=== PATIENT | female | born 1995 | race Caucasian/White ===

== ENCOUNTER 2024-04-24 10:15 | Emergency (ER) | payer OTHER, SELFPAY ==
[2024-04-24] MEDS: DILAUDID 0.5 MG IV (10:45)
--- NOTE | 2024-04-24 10:50 | ED.GENMED ---
History of Present Illness
General
Chief Complaint: Anal/Rectal Problem
Source: patient
Time Seen by Provider: 04/24/24 10:23
History of Present Illness
History of Present Illness:
28-year-old female presents complaining of severe rectal pain onset yesterday getting worse today. She states she is sweaty and shaky secondary to the pain. She has a history of anal fissures however this feels different. Hurts to try to have a
bowel movement. She denies any nausea or abdominal pain. No blood in the bowel movement. No other complaints at this time
Past History
Past History
ED Past Medical History: Asthma, Hypercholesterolemia, Psychiatric (PTSD, borderline personality) and Other (Polycystic ovarian syndrome, IBS)
ED Past Surgical History: Tonsilectomy
Social History
Tobacco: Smoker
Alcohol: None
Personal: Other (Seperated)
Living: with family
Family History
Family History: Diabetes
Phy Exam
Physical Exam
Physical Exam:
General: Uncomfortable appearing female shaking and distress
HEENT: Normocephalic atraumatic
Heart: Regular rate and rhythm
Lungs: Clear no wheeze
Rectal exam. There is no external fissure noted. There is no external hemorrhoid noted. No obvious erythema or swelling patient describes discomfort inside.
Extremities: No cyanosis
Course
Orders/Labs/Results
Orders:
Orders
04/24/24 10:36
CT Pelvis With Iv Contrast Urgent
Comment:
Reason For Exam: rectal pain abscess vs proctitis
HYDROmorphone [Dilaudid] 0.5 mg IV NOW STA
Test Result ONCE
04/24/24 10:44
Complete Blood Count/With Diff Urgent
Comprehensive Metabolic Panel Urgent
HCG, Serum Qualitative Screen Urgent
04/24/24 11:08
diazePAM [Valium Injection] 5 mg IV NOW STA
Abnormal Lab Results
04/24/24
10:44
MCH 33.4 H pg
(27.0-31.0)
Abs Immat Gran (auto) 0.1 H 10^3/uL
(0-0.05)
AST 40 H U/L
(14-36)
ALT 50 H U/L
(0-35)
Total Protein 8.5 H g/dl
(6.3-8.2)
Albumin 5.2 H g/dl
(3.5-5.0)
04/24/24 10:44
04/24/24 10:44
Vital Signs
Initial and Last Documented VS:
Initial Vital Signs
Temp Pulse Resp Pulse Ox
98.0 F 93 22 98
04/24/24 10:17 04/24/24 10:17 04/24/24 10:17 04/24/24 10:17
Last Documented Vital Signs
Temp Pulse Resp Pulse Ox
98.0 F 93 22 98
04/24/24 10:17 04/24/24 10:17 04/24/24 10:17 04/24/24 10:17
MDM/Problems Addressed
Differential Diagnosis Includes:
Severe rectal pain. Consider hemorrhoids versus fissure versus proctitis versus abscess
Nothing externally on exam. Patient is in severe pain. Will treat discomfort. CT of pelvis with IV contrast pending.
*Critical Care Note
Total Time (30-74mins, 75-104mins- exclusive of procedures): Not Applicable
Update Note
Update Note:
CT negative for acute finding. Patient does feel better after supportive and symptomatic care here. Suspect mild proctitis. No fever. Labs reviewed without significant finding. Recommend steroid suppository stable for discharge
ED Attending Note
-
Portions of this chart may have been created with voice recognition software.� Occasional wrong word or��sound alike� substitutions may have occurred due to the inherent limitations of voice recognition software.
Discharge Plan
Departure
Patient Disposition: Home (Routine Discharge)
Date of Disposition: 04/24/24
Time of Disposition: 13:11
Patient with high blood pressure during this ER visit?: No
Discharge Problem:
Pain, rectal
Instructions: How to Do a Sitz Bath
Prescriptions:
New
hydrocortisone acetate 25 mg suppository
25 mg [place] BID 14 Days Qty: 12 0RF
No Action
albuterol sulfate 18 GM HFA aerosol inhaler
8.5 gm IH PRN PRN (Reason: asthma)
cannabidiol [Epidiolex] 1 UNIT solution
1 unit PO DAILY
Referrals:
NONE,* [Family Provider] -
Activity Restrictions/Additional Instructions:
Use steroid suppositories as directed. Keep stool soft with MiraLAX. Return if worse otherwise follow-up with your GI doctor
Interventions
Interventions:
*Risk Screen - Suicide Last Done: 04/24/24 12:17
*Neglect/Abuse Screening Last Done: 04/24/24 12:17
SU-Utaxqg-Bghwvrlhdy Assessment Last Done: 04/24/24 10:57
ED-Skin Assessment Last Done: 04/24/24 10:57
Discharge Date and Time
Print Language: SENEGALESE
[2024-04-24 11:00] LABS: % Basophils 0.5 % (0-2); % Eosinophils 2.9 % (0-6); % Immature Granulocytes 0.5 % (0-0.5); % Lymphocytes 28.7 % (20.5-51.1); % Monocytes 6.1 % (1.7-9.3); % Neutrophils 61.3 % (42.2-75.2); Absolute Basophils 0.1 10^3/uL (0-0.2); Absolute Eosinophils 0.3 10^3/uL (0-0.7); Absolute Immature Granulocytes 0.1 10^3/uL (0-0.05); Absolute Lymphocytes 2.7 10^3/uL (1.2-3.4); Absolute Monocytes 0.6 10^3/uL (0.1-0.6); Absolute Neutrophils 5.8 10^3/uL (1.4-6.5); Hematocrit 43.6 % (37.0-47.0); Hemoglobin 15.4 g/dL (12.0-16.0); Mean Corp Hgb Conc. 35.3 g/dL (33.0-37.0); Mean Corpuscular Hgb 33.4 pg (27.0-31.0); Mean Corpuscular Volume 94.6 fL (81.0-99.0); Mean Platelet Volume 9.9 fL (7.4-10.4); Nucleated Red Blood Cells % 0 %; Platelet Count 311 10^3/uL (130-400); Red Blood Cell Count 4.61 10^6/uL (4.20-5.40); Red Cell Dist. Width 12.1 % (11.5-14.5); White Blood Cell Count 9.4 10^3/uL (4.8-10.8)
[2024-04-24 11:12] LABS: ALT (SGPT) 50 U/L (0-35); AST (SGOT) 40 U/L (14-36); Albumin 5.2 g/dl (3.5-5.0); Alkaline Phosphatase 123 U/L (38-126); Blood Urea Nitrogen 10 mg/dl (7-17); Calcium 10.1 mg/dl (8.4-10.2); Carbon Dioxide 27 mmol/L (22-30); Chloride 106 mmol/L (98-107); Glucose 93 mg/dl (70-99); HCG, Serum Qualitative Screen Negative; Potassium 4.3 mmol/L (3.5-5.1); Sodium 142 mmol/L (135-145); Total Bilirubin 0.8 mg/dl (0.2-1.3); Total Protein 8.5 g/dl (6.3-8.2); eGFR > 60.00
[2024-04-24] MEDS: VALIUM INJECTION 5 MG IV (11:14)
[2024-04-24 13:17] VITALS: BP 126/74
[2024-04-24] MEDS: TORADOL 15 MG IM (13:39)
== END 2024-04-24 13:42 | disposition home or self-care (01) ==
LOC: EMR 10:15
PROVIDERS: Physician Assistant; EMERGENCY PHYSICIAN Student in an Organized Health Care Education/Training Program
DX: K62.89 Other specified diseases of anus and rectum (principal); J45.909 Unspecified asthma, uncomplicated; E78.00 Pure hypercholesterolemia, unspecified; F43.10 Post-traumatic stress disorder, unspecified; F60.3 Borderline personality disorder; E28.2 Polycystic ovarian syndrome; K58.9 Irritable bowel syndrome, unspecified; F17.200 Nicotine dependence, unspecified, uncomplicated; Z83.3 Family history of diabetes mellitus
CPT/HCPCS: 99284; 96374; 96375; 96372; 72193; 80053; 84703; 85025; Q9967

== ENCOUNTER 2024-04-25 12:46 | Emergency (ER) | payer OTHER, SELFPAY ==
[2024-04-25 12:51] VITALS: BP 169/110
[2024-04-25 14:35] VITALS: BP 139/88
--- NOTE | 2024-04-25 14:36 | ED.GENMED ---
History of Present Illness
General
Chief Complaint: Anal/Rectal Problem
Time Seen by Provider: 04/25/24 14:29
History of Present Illness
History of Present Illness:
Patient is a 28-year-old female with past medical history of pseudoseizures, asthma, hypertension, history of IBS/gastroparesis, bipolar disorder, depression, borderline personality disorder, PTSD, and asthma, here today for evaluation of rectal
pain. Patient states she has had intermittent episodes of rectal pain over the past 2 to 3 days. Pain is getting worse. Patient states pain is worse with defecation and she has been increasingly sweaty and shaky secondary to the pain. She did
attempt to use an enema which did not improve her symptoms and in fact made them worse. She has had a prior history of anal fissures but states symptoms today feel different. She reports no abdominal discomfort. No rectal bleeding. No vomiting
noted. No fevers. Patient states she has previously followed with GI but not for rectal pain. She does report having a colonoscopy several years ago which was reportedly normal. The patient denies recent anal intercourse. No concern for abuse,
trauma, or rape. The patient was seen in our emergency department yesterday for similar symptoms. She underwent a workup including screening labs which were noted to be within normal limits aside from a mild transaminitis. Patient also underwent a
CAT scan of the pelvis with IV contrast which revealed no apparent significant rectal wall thickening. No evidence of pneumatosis. No diverticulosis/diverticulitis. No acute findings identified. No abscess noted. Patient was ultimately
discharged. She presents today again given symptoms are persistent.
Past History
Past History
ED Past Medical History: Asthma, Hypercholesterolemia, Psychiatric (PTSD, borderline personality) and Other (Polycystic ovarian syndrome, IBS)
ED Past Surgical History: Tonsilectomy
Social History
Tobacco: Smoker
Alcohol: None
Personal: Other (Seperated)
Living: with family
Family History
Family History: Diabetes
Review of Systems
Review of Systems
All Other Systems: ROS reviewed and negative except as documented in HPI and ROS
Phy Exam
Physical Exam
Physical Exam:
GENERAL: Alert , in no apparent distress
EYE: pupils equal and reactive
NECK: Supple, no significant adenopathy.
ENT: o/p clr, mmm.
CARDIAC: Regular rate and rhythm .
LUNGS: Clear breath sounds bilaterally, no acute respiratory distress, no wheezes/rales/rhonchi
ABDOMEN: Soft, without focal tenderness, no r/g, no cvat
RECTAL: no masses, no bleeding, significant tenderness with CHELSY, very limited stool sample but heme negative, no hemorroids noted, no skin changes/erythema
NEUROLOGICAL: Alert and oriented, no focal neuro deficits
SKIN: Warm and dry, skin intact.
MUSCULOSKELETAL: No edema, well perfused.
PSYCH: Normal and appropriate interaction.
Course
Orders/Labs/Results
Orders:
Orders
04/25/24 14:53
Ibuprofen [Motrin] 600 mg PO NOW STA
04/25/24 15:05
Diazepam [Valium] 2 mg PO NOW STA
Abdomen Xray - 1 View [CR Abdomen - 1 View] Urgent
Comment:
Reason For Exam: rectal pain
Vital Signs
Initial and Last Documented VS:
Initial Vital Signs
Temp Pulse Resp BP Pulse Ox
98.1 F 128 18 169/110 98
04/25/24 12:51 04/25/24 12:51 04/25/24 12:51 04/25/24 12:51 04/25/24 12:51
Last Documented Vital Signs
Temp Pulse Resp BP Pulse Ox
98.1 F 82 20 125/96 98
04/25/24 12:51 04/25/24 15:04 04/25/24 15:04 04/25/24 15:04 04/25/24 12:51
MDM/Problems Addressed
Differential Diagnosis Includes:
Patient is a 28-year-old female with past medical history of pseudoseizures, asthma, hypertension, history of IBS/gastroparesis, bipolar disorder, depression, borderline personality disorder, PTSD, and asthma, here today for evaluation of rectal
pain. Patient states she has had intermittent episodes of rectal pain over the past 2 to 3 days. Overall, patient appears well. Physical examination including rectal examination described above. Findings may be secondary to anal fissures given
history. No emergent findings identified on examination. We will obtain a plain film abdominal XR and provide pain medication with ibuprofen and Valium. Will discuss with colorectal surgery. Case discussed with attending, Dr. Kong.
04/25/2024: 16:29: XR negative. Patient made aware of findings. Case discussed with colorectal surgery Dr. Jarod Centeno, who recommends no acute interventions and outpatient follow up. Will recommend ibuprofen for pain and calista-colace for stool
softening. Recommend supportive measures and close f/u. Patient given return precautions for worsening symptoms. All questions answered. Stable for discharge.
*Critical Care Note
Total Time (30-74mins, 75-104mins- exclusive of procedures): Not Applicable
ED Attending Note
-
Portions of this chart may have been created with voice recognition software.� Occasional wrong word or��sound alike� substitutions may have occurred due to the inherent limitations of voice recognition software.
Discharge Plan
Departure
Patient Disposition: Home (Routine Discharge)
Date of Disposition: 04/25/24
Time of Disposition: 16:33
Patient with high blood pressure during this ER visit?: Yes
Condition: Good
Covid-19: Not Applicable
Discharge Problem:
Rectal pain
Prescriptions:
New
sennosides-docusate sodium [Senna with Docusate Sodium] 8.6-50 mg tablet
2 tab-cap PO DAILY PRN (Reason: Constipation) 7 Days Qty: 14 0RF
No Action
albuterol sulfate 18 GM HFA aerosol inhaler
8.5 gm IH PRN PRN (Reason: asthma)
cannabidiol [Epidiolex] 1 UNIT solution
1 unit PO DAILY
hydrocortisone acetate 25 mg suppository
25 mg [place] BID 14 Days Qty: 12 0RF
Referrals:
Jarod Centeno MD [Active] - Follow up in 1 week
NONE,* [Family Provider] -
Activity Restrictions/Additional Instructions:
You were seen today for evaluation of rectal pain.
Your examination is without acute abnormalities noted.
We discussed your case with colorectal surgery who recommends outpatient follow-up.
Begin taking the stool softening medication as directed. You may take [id number] ibuprofen and Tylenol as directed as needed.
Return for any new, worsening, or concerning symptoms.
Interventions
Interventions:
*Risk Screen - Suicide Last Done: 04/25/24 13:10
*General Assessment Last Done: 04/25/24 13:10
*Neglect/Abuse Screening Last Done: 04/25/24 13:10
*ED COVID-19 Vaccine History Last Done: 04/25/24 12:51
*Nursing Disposition Last Done: 04/25/24 16:46
ED-Skin Assessment Last Done: 04/25/24 13:10
Discharge Date and Time
Discharge Date/Time: 04/25/24 16:46
Print Language: ESTONIAN
[2024-04-25] MEDS: MOTRIN 600 MG PO (15:00)
[2024-04-25 15:04] VITALS: BP 125/96
[2024-04-25] MEDS: VALIUM 2 MG PO (15:09)
== END 2024-04-25 16:46 | disposition home or self-care (01) ==
LOC: EMR 12:46
PROVIDERS: EMERGENCY PHYSICIAN Emergency Medicine
DX: K62.89 Other specified diseases of anus and rectum (principal); J45.909 Unspecified asthma, uncomplicated; I10 Essential (primary) hypertension; K58.9 Irritable bowel syndrome, unspecified; K31.84 Gastroparesis; F31.9 Bipolar disorder, unspecified; F60.3 Borderline personality disorder; E78.00 Pure hypercholesterolemia, unspecified; E28.2 Polycystic ovarian syndrome; F17.200 Nicotine dependence, unspecified, uncomplicated; Z83.3 Family history of diabetes mellitus
CPT/HCPCS: 99283; 74018

== ENCOUNTER 2024-05-19 06:13 | Day surgery (SDC) | payer OTHER, SELFPAY ==
[2024-05-19] VITALS (8 sets, daily range): BP systolic 97–116; BP diastolic 52–88; BMI 36.1
[2024-05-19] MEDS: NORMOSOL-R 1000 IV (07:02)
== END 2024-05-19 09:55 | disposition home or self-care (01) ==
LOC: SDS 06:13
PROVIDERS: ATTENDING PHYSICIAN Surgery
DX: K60.2 Anal fissure, unspecified (principal); K62.89 Other specified diseases of anus and rectum; K64.8 Other hemorrhoids
CPT/HCPCS: 46505; J0585

== ENCOUNTER 2024-06-23 06:37 | Day surgery (SDC) | payer OTHER, SELFPAY ==
--- NOTE | 2024-06-23 14:38 | CM ---
manager school reviewed patient's chart and met with patient and spouse at bedside. manager school received information from patient's nurse that patient had a positive screen for suicide ideation, psychiatry was contacted and patient was cleared, per
patient she has a psychiatric in the community and a therapist with a virtual appointment next week with her therapist.
Patient lives in an apartment with spouse is independent with adl's and ambulation, no dme.
Pharmacy: [facility].
Plan; home with spouse.
[2024-06-23] MEDS: DUONEB 3 ML INH (16:15)
== END 2024-06-23 17:54 | disposition home or self-care (01) ==
LOC: SDS 06:37
PROVIDERS: ATTENDING PHYSICIAN Surgery
DX: K60.2 Anal fissure, unspecified (principal); K64.8 Other hemorrhoids; K59.4 Anal spasm
CPT/HCPCS: 46200; 94640

== ENCOUNTER 2024-09-18 19:17 | Emergency (ER) | payer OTHER, SELFPAY ==
[2024-09-18 21:37] VITALS: BP 134/88
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
== END 2024-09-18 22:34 | disposition home or self-care (01) ==
LOC: EMR 19:17
PROVIDERS: EMERGENCY PHYSICIAN Student in an Organized Health Care Education/Training Program
DX: F32.A Depression, unspecified (principal); J45.909 Unspecified asthma, uncomplicated; E78.00 Pure hypercholesterolemia, unspecified; F17.200 Nicotine dependence, unspecified, uncomplicated; Z59.01 Sheltered homelessness
CPT/HCPCS: 99283

== ENCOUNTER 2025-09-29 16:53 | Emergency (ER) | payer OTHER, SELFPAY ==
[2025-09-29 16:58] VITALS: BP 132/85
--- NOTE | 2025-09-29 18:54 | ED.GENMED ---
History of Present Illness
General
Chief Complaint: Dental Problem
Source: patient
Exam Limitations: none
Time Seen by Provider: 09/29/25 18:18
Nursing documentation reviewed up to this point in time: agreed with
History of Present Illness
History of Present Illness:
Patient to the emergency department for evaluation of left lower jaw pain. She states that she was seen by a dentist earlier this week. She states that since then she has had increasing pain to left lower jaw. She spoke with the dentist yesterday
and was given a prescription for amoxicillin. She states that she has not noticed any improvement. She is taking Tylenol and ibuprofen for pain with minimal relief. She brought self to the emergency department for evaluation.
Past History
Past History
ED Past Medical History: Asthma, Hypercholesterolemia, Psychiatric (PTSD, borderline personality) and Other (Polycystic ovarian syndrome, IBS)
ED Past Surgical History: Tonsilectomy
Social History
Tobacco: Smoker
Alcohol: None
Personal: Other (Seperated)
Living: with family
Family History
Family History: Diabetes
Review of Systems
Review of Systems
Allergies reviewed?: Yes
All Other Systems: ROS reviewed and negative except as documented in HPI and ROS
Constitutional: Reports no symptoms
EENT: Reports other (Right lower jaw pain)
Respiratory: Reports no symptoms
Cardiac: Reports no symptoms
ABD/GI: Reports no symptoms
: Reports no symptoms
Musculoskeletal: Reports no symptoms
Skin: Reports no symptoms
Neurological: Reports no symptoms
Psychiatric: Reports no symptoms
Phy Exam
General Physical Exam
General Presentation: moderate distress
General age: appears stated age
General Skin: warm and dry
General Habitus: normal
General Mental: alert
ENT Exam
ENT Exam: other (Right lower jaw pain. No dental caries noted on exam. No swelling or abscess noted. No trismus. Pain to palpation over right lower first molar.)
Musculoskeletal Exam
Musculoskeletal Exam: full ROM and neuro vasc intact
Skin Exam
Skin Exam: normal color, warm/dry and no rash
Psychiatric Exam
Psychiatric Exam: normal mood/affect
Course
Orders/Labs/Results
Orders:
Orders
09/29/25 18:53
Ketorolac [Toradol] 60 mg IM NOW STA
Vital Signs
Initial and Last Documented VS:
Initial Vital Signs
Temp Pulse Resp BP Pulse Ox
98.6 F 80 16 132/85 99
09/29/25 16:58 09/29/25 16:58 09/29/25 16:58 09/29/25 16:58 09/29/25 16:58
Last Documented Vital Signs
Temp Pulse Resp BP Pulse Ox
98.6 F 81 22 142/92 97
09/29/25 16:58 09/29/25 19:05 09/29/25 19:05 09/29/25 19:05 09/29/25 19:05
*Pulse Oximetry
SaO2: 99
Oxygen Mode of Delivery: Room air
Patient hypoxic: no
*Critical Care Note
Total Time (30-74mins, 75-104mins- exclusive of procedures): Not Applicable
Update Note
Update Note:
Patient to the emergency department with complaint of right lower jaw pain following dental procedure earlier this week. She was placed on an antibiotic by her dentist but reports no improvement. She was advised by her dentist to come to the
emergency department. She denies any fevers. On arrival to the ED her vital signs are stable and she remains afebrile. There is no evidence of facial swelling. There is no evidence of abscess formation on exam. She is tender over the right
lower first molar. No dental carry noted. No trismus. Will place on a short course of pain medication and she was advised to continue the antibiotics as prescribed by her dentist. She will need to follow-up with her dentist in the a.m. She was
given instructions on signs and symptoms to return to the emergency department and she is agreeable to this plan.
ED Attending Note
-
Portions of this chart may have been created with voice recognition software.� Occasional wrong word or��sound alike� substitutions may have occurred due to the inherent limitations of voice recognition software.
Discharge Plan
Departure
Patient Disposition: Home (Routine Discharge)
Date of Disposition: 09/29/25
Time of Disposition: 18:48
Patient with high blood pressure during this ER visit?: No
Condition: Good
Covid-19: Not Applicable
Discharge Problem:
Pain, dental
Instructions: Dental Pain (DC)
Prescriptions:
New
hydrocodone-acetaminophen 5-325 mg tablet
1 tab PO Q6H PRN (Reason: Pain) Qty: 10 0RF
No Action
quetiapine [Seroquel] 300 mg Tablet
300 mg PO HS
omeprazole 40 mg Capsule,Delayed Release(Dr/Ec)
40 mg PO DAILY
ropinirole 0.25 mg Tablet
0.25 mg PO HS
gabapentin 300 mg Capsule
300 mg PO TID
cholecalciferol (vitamin D3) [Vitamin D3] 50 mcg (2,000 unit) Capsule
50 mcg PO DAILY
Linzess 145 mcg Capsule
145 mcg PO DAILY
albuterol sulfate 90 mcg/actuation Hfa Aerosol Inhaler
2 puff INHALATION PRN PRN (Reason: SOB)
hydroxyzine pamoate [Vistaril] 25 mg Capsule
25 mg PO BID
Marijuana
1 dose inhalation PRN PRN (Reason: PTSD, PAin)
sennosides-docusate sodium [Senna with Docusate Sodium] 8.6-50 mg tablet
2 tab-cap PO DAILY
Referrals:
Eliu Gar MD [Family Provider]
Interventions
Interventions:
*Risk Screen - Suicide Last Done: 09/29/25 16:58
*General Assessment Last Done: 09/29/25 16:58
*Neglect/Abuse Screening Last Done: 09/29/25 16:58
*ED COVID-19 Vaccine History Last Done: 09/29/25 16:58
*ED Influenza Vaccine History Last Done: 09/29/25 16:58
[facility] Fall Risk Assessment Tool Last Done: 09/29/25 18:41
*Nursing Disposition Last Done: 09/29/25 19:06
Discharge Date and Time
Discharge Date/Time: 09/29/25 19:07
Print Language: COLOMBIAN
[2025-09-29] MEDS: TORADOL 60 MG IM (19:00)
[2025-09-29 19:05] VITALS: BP 142/92
== END 2025-09-29 19:07 | disposition home or self-care (01) ==
LOC: EMR 16:53
PROVIDERS: EMERGENCY PHYSICIAN Emergency Medicine; FAMILY PHYSICIAN Family Medicine
DX: K08.89 Other specified disorders of teeth and supporting structures (principal); E78.00 Pure hypercholesterolemia, unspecified; J45.909 Unspecified asthma, uncomplicated; F43.10 Post-traumatic stress disorder, unspecified; F60.3 Borderline personality disorder; K58.9 Irritable bowel syndrome, unspecified; E28.2 Polycystic ovarian syndrome; F17.200 Nicotine dependence, unspecified, uncomplicated
CPT/HCPCS: 99284; 96372